=== PATIENT | female | born 1955 | race Two or more races ===

== ENCOUNTER 2016-12-06 10:22 | Outpatient (CLI) | payer BC, OTHER ==
[~2016-12-06 10:22] MED LIST: ASPI-605 PO; ATEN25TA PO; LISI10TA59 GT
== END 2016-12-06 23:59 | disposition home or self-care (01) ==
LOC: RAD 10:22
PROVIDERS: ATTEND Family Medicine
DX: M25.552 Pain in left hip (principal)
CPT/HCPCS: 73510-TC

== ENCOUNTER 2017-02-09 10:26 | Outpatient (CLI) | payer BC, OTHER ==
[2017-02-09 11:11] LABS: BASOPHILS % (AUTO) 0.7 % (0.0-2.0); EOSINOPHILS # (AUTO) 0.2 /CMM (0.0-0.7); EOSINOPHILS % (AUTO) 2.4 % (0.0-6.0); HEMATOCRIT 44 % (33-45); HEMOGLOBIN 14.6 g/dL (11.5-14.8); LYMPHOCYTES # (AUTO) 1.9 /CMM (0.8-4.8); MEAN CORPUSCULAR HEMOGLOBIN 27 PG (26.0-33.0); MEAN CORPUSCULAR HGB CONC 33 g/dl (31.0-36.0); MEAN CORPUSCULAR VOLUME 79 fL (82-100); MONOCYTES # (AUTO) 0.2 /CMM (0.1-1.30); MONOCYTES % (AUTO) 3.3 % (2.0-12.0); NEUTROPHILS # (AUTO) 3.9 /CMM (1.8-8.9); NEUTROPHILS % (AUTO) 62.6 % (43.0-81.0); PLATELET COUNT (AUTO) 241 /CMM (150-450); RDW COEFFICIENT OF VARIATION 14.4 (11.5-15.0); RED BLOOD CELL COUNT(AUTO) 5.51 MIL/uL (4.0-5.2); WHITE BLOOD COUNT (AUTO) 6.3 K/uL (4.3-11.0)
[2017-02-09 11:38] LABS: BILIRUBIN,TOTAL 0.5 mg/dL (0.2-1.0); CALCIUM, SERUM 9.6 mg/dL (8.5-10.1); CREATININE 0.8 mg/dL (0.6-1.3); POTASSIUM 4.4 mmol/L (3.5-5.1); TOTAL PROTEIN, SERUM 7.7 g/dL (6.4-8.2)
[2017-02-09 11:44] LABS: THYROID STIMULATING HORMONE 1.762 uIU/mL (0.358-3.74)
== END 2017-02-09 23:59 | disposition home or self-care (01) ==
LOC: LAB 10:26
PROVIDERS: ATTEND Family Medicine
DX: I10 Essential (primary) hypertension (principal); E55.9 Vitamin D deficiency, unspecified
CPT/HCPCS: 36415; 80053-TC; 80061-TC; 82306; 84439-TC; 84443-TC; 85025-TC

== ENCOUNTER 2017-02-21 10:29 | Outpatient (CLI) | payer BC, OTHER ==
[2017-02-22 13:22] LABS: HEPATITIS A AB, TOTAL Positive (Negative); HEPATITIS B SURFACE AB Non Reactive (.)
== END 2017-02-21 23:59 | disposition home or self-care (01) ==
LOC: LAB 10:29
PROVIDERS: ATTEND Family Medicine
DX: R94.5 Abnormal results of liver function studies (principal)
CPT/HCPCS: 36415; 86706; 86709-TC; 87340

== ENCOUNTER 2017-02-22 10:18 | Outpatient (CLI) | payer BC, OTHER | END 2017-02-22 23:59 | disposition home or self-care (01) | LOC: US 10:18 | PROVIDERS: ATTEND Family Medicine | DX: R16.0 Hepatomegaly, not elsewhere classified (principal); K76.0 Fatty (change of) liver, not elsewhere classified; Z90.49 Acquired absence of other specified parts of digestive tract | CPT/HCPCS: 76700-TC ==

== ENCOUNTER 2017-02-27 11:16 | Outpatient (CLI) | payer BC, OTHER | END 2017-02-27 23:59 | disposition home or self-care (01) | LOC: LAB 11:16 | PROVIDERS: ATTEND Family Medicine | DX: R94.5 Abnormal results of liver function studies (principal) | CPT/HCPCS: 36415 ==

== ENCOUNTER 2017-03-01 09:25 | Outpatient (CLI) | payer BC, OTHER | END 2017-03-01 23:59 | disposition home or self-care (01) | LOC: MRI 09:25 | PROVIDERS: ATTEND Family Medicine | DX: S83.281A Other tear of lateral meniscus, current injury, right knee, initial encounter (principal); M25.552 Pain in left hip; M17.11 Unilateral primary osteoarthritis, right knee; M25.461 Effusion, right knee; M65.861 Other synovitis and tenosynovitis, right lower leg; X58.XXXA Exposure to other specified factors, initial encounter; Y93.89 Activity, other specified; Y92.89 Other specified places as the place of occurrence of the external cause; Y99.8 Other external cause status | CPT/HCPCS: 73721-TC ==

== ENCOUNTER 2017-05-31 05:07 | Day surgery (SDC) | payer BC, OTHER ==
[2017-05-31] MEDS ORDERED: NEEDLELESS EST SET LARGE BORE 1 EA INFUS.SET MC ONE (05:11)
[2017-05-31] MEDS ORDERED: CEFAZOLIN SODIUM/DEXTROSE,ISO 50 ML IV ONE (05:11)
[2017-05-31] MEDS ORDERED: IV SET PRIMARY 1 EA INFUS.SET MC ONE (05:11)
[2017-05-31] MEDS ORDERED: SECONDARY IV SET 1 EA INFUS.SET MC ONE (05:11)
[2017-05-31] MEDS ORDERED: IV NS 0.9% 1,000 ML ONE (05:11)
[2017-05-31] MEDS ORDERED: LIDOCAINE HCL/PF 1% 30 ML SDV ONE (06:20)
[2017-05-31] MEDS ORDERED: methylPREDNISolone ACETATE 80 MG/ML VIAL ONE (07:08)
[2017-05-31] MEDS ORDERED: FENTANYL PF 100MCG/2ML AMPUL ONE (07:28)
== END 2017-05-31 08:20 | disposition home or self-care (01) ==
LOC: DS 05:07
PROVIDERS: ATTEND Specialist
DX: S83.281A Other tear of lateral meniscus, current injury, right knee, initial encounter (principal); S83.241A Other tear of medial meniscus, current injury, right knee, initial encounter; M94.261 Chondromalacia, right knee; X58.XXXA Exposure to other specified factors, initial encounter; Y93.9 Activity, unspecified; Y92.89 Other specified places as the place of occurrence of the external cause; Y99.9 Unspecified external cause status; E66.3 Overweight; E78.5 Hyperlipidemia, unspecified; I10 Essential (primary) hypertension; E11.9 Type 2 diabetes mellitus without complications; M16.10 Unilateral primary osteoarthritis, unspecified hip
CPT/HCPCS: 88304-TC; 88305-TC; 88311-TC; A4217; A6253; J0690; J1040; J1100; J2001; J2704; J3010; J3490; J7030

== ENCOUNTER 2017-11-13 21:18 | Emergency (ER) | payer BC, OTHER ==
[~2017-11-13] VITALS: Ht 160 cm; Wt 68.0 kg
--- NOTE | 2017-11-13 21:41 | NUR ---
PT BIB DAUGHTER, PT C/O HEAD PAIN, RIGHT KNEE PAIN, AND LOWER BACK PAIN S/P UNWITNESSED SLIP AND FALL, PT STATES BACK OF HEAD HIT THE STAIRS, LAST NIGHT DENIES KO. RR EVEN AND UNLABORED. NO SOB NOTED. NAD NOTED. NO NVD AT THIS TIME. PT GOWNED AND PLACED ON MONITOR WAITIG FOR MD LUU.
--- NOTE | 2017-11-13 22:30 | NUR ---
DR. TORO AT BEDSIDE FOR EVAL.
[2017-11-13 22:52] LABS: BASOPHILS % (AUTO) 0.3 % (0.0-2.0); EOSINOPHILS # (AUTO) 0.2 /CMM (0.0-0.7); EOSINOPHILS % (AUTO) 2.8 % (0.0-6.0); HEMATOCRIT 39 % (33-45); HEMOGLOBIN 13.2 g/dL (11.5-14.8); LYMPHOCYTES # (AUTO) 2.1 /CMM (0.8-4.8); LYMPHOCYTES % (AUTO) 34.5 % (20.0-44.0); MEAN CORPUSCULAR HEMOGLOBIN 27 PG (26.0-33.0); MEAN CORPUSCULAR HGB CONC 34 g/dl (31.0-36.0); MEAN CORPUSCULAR VOLUME 80 fL (82-100); MONOCYTES # (AUTO) 0.3 /CMM (0.1-1.30); MONOCYTES % (AUTO) 5.5 % (2.0-12.0); NEUTROPHILS # (AUTO) 3.4 /CMM (1.8-8.9); NEUTROPHILS % (AUTO) 56.9 % (43.0-81.0); PLATELET COUNT (AUTO) 197 /CMM (150-450); RDW COEFFICIENT OF VARIATION 13.5 (11.5-15.0); RED BLOOD CELL COUNT(AUTO) 4.94 MIL/uL (4.0-5.2); WHITE BLOOD COUNT (AUTO) 5.9 K/uL (4.3-11.0)
[2017-11-13] MEDS ORDERED: MORPHINE SULFATE INJ 2 MG/ML DISP.SYRIN IV ONE (23:00)
[2017-11-13] MEDS ORDERED: ONDANSETRON HCL/PF 4 MG/2 ML VIAL IVP ONE (23:00)
--- NOTE | 2017-11-13 23:01 | NUR ---
PATIENT OFF TO CT SCAN IN STABLE CONDITION
[2017-11-13 23:06] LABS: CALCIUM, SERUM 9.1 mg/dL (8.5-10.1); CREATININE 0.9 mg/dL (0.6-1.3)
[2017-11-13 23:11] LABS: INR 1.04 (0.87-1.13); PROTHROMBIN TIME 10.8 SECS (9.5-12.7)
[2017-11-13 23:12] LABS: ALBUMIN 3.6 g/dL (3.4-5.0); BILIRUBIN,DIRECT 0.1 mg/dL (0.0-0.2); BILIRUBIN,TOTAL 0.3 mg/dL (0.2-1.0); TOTAL PROTEIN, SERUM 7.3 g/dL (6.4-8.2)
[2017-11-13] MEDS ORDERED: ONDANSETRON HCL/PF 4 MG/2 ML VIAL ONE (23:19)
[2017-11-13] MEDS ORDERED: MORPHINE SULFATE INJ 4 MG/ML DISP.SYRIN ONE (23:20)
--- NOTE | 2017-11-13 23:33 | NUR ---
PT RETURNED FROM CT.
--- NOTE | 2017-11-14 00:24 | NUR ---
URINE COLOR SHOWED TO AND MS WAS PLEASED. WILL CONTINUE CARE UNTIL D/C
--- NOTE | 2017-11-14 00:25 | NUR ---
DR. TORO AT BEDSIDE SPEAKING TO PT REGARDING RESULTS.
--- NOTE | 2017-11-14 01:10 | NUR ---
D/C INSTRUCTIONS GIVEN. WALKER GIVEN FOR AMBULATORY HELP
[2017-11-14 01:18] VITALS: BP 135/68
== END 2017-11-14 01:19 | disposition home or self-care (01) ==
LOC: ER 21:19
DX: S09.90XA Unspecified injury of head, initial encounter (principal); S70.01XA Contusion of right hip, initial encounter; M23.91 Unspecified internal derangement of right knee; I10 Essential (primary) hypertension; Z79.82 Long term (current) use of aspirin; Z91.013 Allergy to seafood; Z90.710 Acquired absence of both cervix and uterus; Z85.42 Personal history of malignant neoplasm of other parts of uterus; W10.9XXA Fall (on) (from) unspecified stairs and steps, initial encounter; Y93.89 Activity, other specified; Y92.89 Other specified places as the place of occurrence of the external cause; Y99.8 Other external cause status
CPT/HCPCS: 36415; 70450-TC; 71010-TC; 72125-TC; 73502; 73552; 73564-TC; 80048-TC; 80076-TC; 85025-TC; 85730-TC; A4606; J2270; J2405; Z7610

== ENCOUNTER 2017-11-15 11:19 | Outpatient (CLI) | payer BC, OTHER ==
[2017-11-16 08:09] LABS: THYROID PEROXIDASE (TPO) AB 11 IU/mL (0-34)
== END 2017-11-15 23:59 | disposition home or self-care (01) ==
LOC: LAB 11:19
PROVIDERS: ATTEND Family Medicine
DX: E04.1 Nontoxic single thyroid nodule (principal)
CPT/HCPCS: 36415; 86376

== ENCOUNTER 2017-11-16 11:07 | Outpatient (CLI) | payer BC, OTHER | END 2017-11-16 23:59 | disposition home or self-care (01) | LOC: US 11:07 | PROVIDERS: ATTEND Family Medicine | DX: E04.2 Nontoxic multinodular goiter (principal) | CPT/HCPCS: 76536-TC ==

== ENCOUNTER 2017-11-21 09:30 | Outpatient (CLI) | payer BC, OTHER | END 2017-11-21 23:59 | disposition home or self-care (01) | LOC: MRI 09:30 | PROVIDERS: ATTEND Family Medicine | DX: S80.01XA Contusion of right knee, initial encounter (principal); M22.41 Chondromalacia patellae, right knee; E04.1 Nontoxic single thyroid nodule; X58.XXXA Exposure to other specified factors, initial encounter; Y93.89 Activity, other specified; Y92.89 Other specified places as the place of occurrence of the external cause; Y99.8 Other external cause status | CPT/HCPCS: 73721-TC ==

== ENCOUNTER 2018-01-19 11:13 | Outpatient (CLI) | payer BC, OTHER | END 2018-01-19 23:59 | disposition home or self-care (01) | LOC: RAD 11:13 | PROVIDERS: ATTEND Family Medicine | DX: R13.11 Dysphagia, oral phase (principal) | CPT/HCPCS: 74230-TC ==

== ENCOUNTER 2018-03-01 09:03 | Outpatient (CLI) | payer BC, OTHER ==
[2018-03-01 09:54] LABS: BASOPHILS % (AUTO) 0.6 % (0.0-2.0); EOSINOPHILS % (AUTO) 1.8 % (0.0-6.0); HEMATOCRIT 42 % (33-45); LYMPHOCYTES # (AUTO) 1.9 /CMM (0.8-4.8); LYMPHOCYTES % (AUTO) 28.9 % (20.0-44.0); MEAN CORPUSCULAR HGB CONC 35 g/dl (31.0-36.0); MEAN CORPUSCULAR VOLUME 81 fL (82-100); MONOCYTES # (AUTO) 0.2 /CMM (0.1-1.30); MONOCYTES % (AUTO) 3.6 % (2.0-12.0); NEUTROPHILS # (AUTO) 4.5 /CMM (1.8-8.9); NEUTROPHILS % (AUTO) 65.1 % (43.0-81.0); PLATELET COUNT (AUTO) 218 /CMM (150-450); RDW COEFFICIENT OF VARIATION 13.1 (11.5-15.0); RED BLOOD CELL COUNT(AUTO) 5.26 MIL/uL (4.0-5.2); WHITE BLOOD COUNT (AUTO) 6.7 K/uL (4.3-11.0)
[2018-03-01 10:32] LABS: ALBUMIN 3.8 g/dL (3.4-5.0); BILIRUBIN,TOTAL 0.5 mg/dL (0.2-1.0); CALCIUM, SERUM 9.7 mg/dL (8.5-10.1); CREATININE 0.8 mg/dL (0.6-1.3); POTASSIUM 4.2 mmol/L (3.5-5.1); TOTAL PROTEIN, SERUM 7.5 g/dL (6.4-8.2)
[2018-03-01 10:41] LABS: FREE T4 (FREE THYROXINE) 1.15 ng/dL (0.76-1.46); THYROID STIMULATING HORMONE 2.495 uIU/mL (0.358-3.74)
[2018-03-01 10:47] LABS: INR 1.04 (0.87-1.13)
== END 2018-03-01 23:59 | disposition home or self-care (01) ==
LOC: LAB 09:03
PROVIDERS: ATTEND Family Medicine
DX: E11.9 Type 2 diabetes mellitus without complications (principal); E06.3 Autoimmune thyroiditis; R79.1 Abnormal coagulation profile
CPT/HCPCS: 36415; 80053-TC; 80061-TC; 84439-TC; 84443-TC; 85025-TC; 85610-TC; 85730-TC

== ENCOUNTER 2018-03-02 09:10 | Outpatient (CLI) | payer BC, OTHER | END 2018-03-02 23:59 | disposition home or self-care (01) | LOC: US 09:10 | PROVIDERS: ATTEND Family Medicine | DX: N20.0 Calculus of kidney (principal); K76.0 Fatty (change of) liver, not elsewhere classified | CPT/HCPCS: 76770-TC ==

== ENCOUNTER 2018-03-08 13:00 | Outpatient (CLI) | payer BC ==
[2018-03-08] MEDS ORDERED: LIDOCAINE HCL/PF 1% 30 ML SDV ONE (13:03)
== END 2018-03-08 23:59 | disposition home or self-care (01) ==
LOC: US 13:00
PROVIDERS: ATTEND Otolaryngology
DX: E04.2 Nontoxic multinodular goiter (principal)
CPT/HCPCS: 76942; 88305 ×2; 88312; J3490

== ENCOUNTER 2018-04-12 13:18 | Outpatient (CLI) | payer BC ==
[2018-04-13 08:08] LABS: *RUBEOLA AB (IGG) >300.0 AU/mL (Immune >29.9); RUBELLA ANTIBODIES, IGG 5.15 index (Immune >0.99)
== END 2018-04-12 23:59 | disposition home or self-care (01) ==
LOC: LAB 13:18
PROVIDERS: ATTEND Family Medicine
DX: K11.20 Sialoadenitis, unspecified (principal)
CPT/HCPCS: 36415; 86735; 86762; 86765

== ENCOUNTER 2018-06-07 08:44 | Outpatient (CLI) | payer BC ==
[2018-06-07] MEDS ORDERED: GADODIAMIDE 5 MMOL/10 ML VIAL IJ ONE (08:45)
[2018-06-07 10:46] LABS: CREATININE 0.8 mg/dL (0.6-1.3)
== END 2018-06-07 23:59 | disposition home or self-care (01) ==
LOC: US 08:44
PROVIDERS: ATTEND Family Medicine
DX: E04.2 Nontoxic multinodular goiter (principal)
CPT/HCPCS: 36415; 70542-TC; 76642-TC; 82565-TC; 84520-TC

== ENCOUNTER 2018-11-26 23:27 | Emergency (ER) | payer BC ==
[~2018-11-26] VITALS: Ht 165.1 cm; Wt 111.1 kg
--- NOTE | 2018-11-26 23:50 | NUR ---
PT BIB RA. COMP OF FEELING "CHEST TIGHTNESS, PAIN AND STABBING SINCE NOON". NO SOB NOTED AT THIS TIME. NO ACUTE DISTRESS AT THIS TIME. PT AOX4. AWAITING MD LUU
[2018-11-26] MEDS ORDERED: HYDROCODONE/APAP 5/325MG 1 EACH TABLET ONE (23:52)
[2018-11-26] MEDS ORDERED: ASPIRIN 81 MG TAB.CHEW ONE (23:52)
[2018-11-26] MEDS ORDERED: NITROGLYCERIN PACKET 1 GM PACKET ONE (23:52)
[2018-11-26] MEDS ORDERED: NITROGLYCERIN 0.4 MG/TAB BOTTLE ONE (23:52)
[2018-11-27] MEDS ORDERED: ASPIRIN 81 MG TAB.CHEW PO ONE
[2018-11-27] MEDS ORDERED: NITROGLYCERIN 0.4 MG/TAB BOTTLE SL ONE
[2018-11-27] MEDS ORDERED: HYDROCODONE/APAP 5/325MG 1 EACH TABLET PO ONE
[2018-11-27] MEDS ORDERED: NITROGLYCERIN PACKET 1 GM PACKET TD ONE
[2018-11-27 00:05] LABS: BASOPHILS # (AUTO) 0.1 /CMM (0.0-0.2); BASOPHILS % (AUTO) 0.8 % (0.0-2.0); EOSINOPHILS % (AUTO) 1.5 % (0.0-6.0); HEMATOCRIT 46 % (33-45); HEMOGLOBIN 15.5 g/dL (11.5-14.8); LYMPHOCYTES # (AUTO) 1.9 /CMM (0.8-4.8); LYMPHOCYTES % (AUTO) 25.9 % (20.0-44.0); MEAN CORPUSCULAR HGB CONC 34 g/dl (31.0-36.0); MEAN CORPUSCULAR VOLUME 80 fL (82-100); MONOCYTES # (AUTO) 0.4 /CMM (0.1-1.30); MONOCYTES % (AUTO) 5.1 % (2.0-12.0); NEUTROPHILS % (AUTO) 66.7 % (43.0-81.0); PLATELET COUNT (AUTO) 233 /CMM (150-450); RED BLOOD CELL COUNT(AUTO) 5.79 MIL/uL (4.0-5.2); WHITE BLOOD COUNT (AUTO) 7.4 K/uL (4.3-11.0)
[2018-11-27 00:14] LABS: CALCIUM, SERUM 9.8 mg/dL (8.5-10.1); CARBON DIOXIDE 30 mmol/L (21-32); CHLORIDE 102 mmol/L (98-107); CREATININE 1.1 mg/dL (0.6-1.3); GLUCOSE 133 mg/dL (74-106); POTASSIUM 3.4 mmol/L (3.5-5.1); SODIUM SERUM 142 mmol/L (136-145); UREA NITROGEN, BLOOD 14 mg/dL (7-18)
[2018-11-27 00:26] LABS: ALANINE AMINOTRANSFERASE 53 U/L (12-78); ALBUMIN 4.1 g/dL (3.4-5.0); ALKALINE PHOSPHATASE 169 U/L (46-116); ASPARTATE AMINOTRANSFERASE 30 U/L (15-37); B-TYPE NATRIURETIC PEPTIDE 101 PG/ML (0-125); BILIRUBIN,DIRECT 0.1 mg/dL (0.0-0.2); BILIRUBIN,TOTAL 0.7 mg/dL (0.2-1.0); TOTAL PROTEIN, SERUM 8.2 g/dL (6.4-8.2)
[2018-11-27] MEDS ORDERED: GUAIFENESIN/CODEINE 10 ML UDC ONE (02:33)
[2018-11-27] MEDS: GUAIFENESIN/CODEINE 10 ML UDC PO PRN ×2 (02:39→02:40)
[2018-11-27 04:03] VITALS: BP 136/72
== END 2018-11-27 04:04 | disposition home or self-care (01) ==
LOC: ER 23:29
DX: R07.89 Other chest pain (principal); R05 Cough; I10 Essential (primary) hypertension; Z90.710 Acquired absence of both cervix and uterus; Z90.49 Acquired absence of other specified parts of digestive tract; Z95.818 Presence of other cardiac implants and grafts; Z91.013 Allergy to seafood; Z60.2 Problems related to living alone; Z79.82 Long term (current) use of aspirin; Z79.899 Other long term (current) drug therapy
CPT/HCPCS: 36415 ×2; 71045; 80048; 80076; 83880; 84484 ×2; 85025; 85378; 93005; 99284; A4606; Z7610

== ENCOUNTER 2019-01-24 09:17 | Outpatient (CLI) | payer BC ==
[2019-01-24] MEDS ORDERED: ANESTHESIA TRAY IN PYXIS 1 EA TRAY MC ONE (09:35)
== END 2019-01-24 23:59 | disposition home or self-care (01) ==
LOC: RAD 09:17
PROVIDERS: ATTEND Family Medicine
DX: S92.912A Unspecified fracture of left toe(s), initial encounter for closed fracture (principal); M85.872 Other specified disorders of bone density and structure, left ankle and foot; M79.89 Other specified soft tissue disorders; X58.XXXA Exposure to other specified factors, initial encounter; Y93.89 Activity, other specified; Y92.89 Other specified places as the place of occurrence of the external cause; Y99.8 Other external cause status
CPT/HCPCS: 73630-TC

== ENCOUNTER 2020-06-14 14:14 | Emergency (ER) | payer BC ==
[~2020-06-14] VITALS: Ht 165.1 cm; Wt 103.4 kg
[~2020-06-14 14:14] MED LIST changes: +LISI-605 GT; -LISI10TA59 GT
--- NOTE | 2020-06-14 14:21 | NUR ---
came in for burning sensation on L chest radiates to left shoulder 6/10 pain scale, also c/o headache. to ER bed 10, hooked to monitor, changed to hosp gown, warm blanket provided. patient aao X 4, breathing even and unlabored. Zach Flores at bedside
--- NOTE | 2020-06-14 14:27 | NUR ---
SPRING chamorro at bedside for ekg
[2020-06-14 14:54] LABS: BASOPHILS % (AUTO) 0.5 % (0.0-2.0); EOSINOPHILS % (AUTO) 1.2 % (0.0-6.0); HEMATOCRIT 42 % (33-45); HEMOGLOBIN 14.3 g/dL (11.5-14.8); LYMPHOCYTES # (AUTO) 1.7 /CMM (0.8-4.8); LYMPHOCYTES % (AUTO) 22.2 % (20.0-44.0); MEAN CORPUSCULAR HGB CONC 34 g/dl (31.0-36.0); MEAN CORPUSCULAR VOLUME 82 fL (82-100); MONOCYTES # (AUTO) 0.4 /CMM (0.1-1.30); MONOCYTES % (AUTO) 4.9 % (2.0-12.0); NEUTROPHILS # (AUTO) 5.4 /CMM (1.8-8.9); NEUTROPHILS % (AUTO) 71.2 % (43.0-81.0); PLATELET COUNT (AUTO) 219 /CMM (150-450); RED BLOOD CELL COUNT(AUTO) 5.13 MIL/uL (4.0-5.2); WHITE BLOOD COUNT (AUTO) 7.6 K/uL (4.3-11.0)
[2020-06-14 15:07] LABS: CALCIUM, SERUM 9.7 mg/dL (8.5-10.1); CARBON DIOXIDE 31 mmol/L (21-32); CHLORIDE 102 mmol/L (98-107); CREATININE 0.8 mg/dL (0.6-1.3); GLUCOSE 99 mg/dL (74-106); POTASSIUM 3.8 mmol/L (3.5-5.1); SODIUM SERUM 139 mmol/L (136-145); UREA NITROGEN, BLOOD 15 mg/dL (7-18)
[2020-06-14] MEDS ORDERED: KETOROLAC TROMETHAMINE INJ 30 MG/ML VIAL ONE (16:02)
--- NOTE | 2020-06-14 16:22 | NUR ---
PATIENT IN BED ASLEEP, EASILY AROUSABLE BY VOICE. HOOKED TO MONITOR, SINUS RHYTHM. WILL CONTINUE TO MONITOR ACCORDINGLY. 12/30 CHEST PAIN
[2020-06-14] MEDS ORDERED: KETOROLAC TROMETHAMINE INJ 30 MG/ML VIAL IV ONE (16:30)
--- NOTE | 2020-06-14 18:13 | NUR ---
IV removed. Catheter intact and site benign. Pressure and 4x4 applied to site. No bleeding noted.Patient discharged to home in stable condition. Written and verbal after care instructions given. Patient verbalizes understanding of instruction.
[2020-06-14 18:23] VITALS: BP 131/63
== END 2020-06-14 18:24 | disposition home or self-care (01) ==
LOC: ER 14:18
DX: R07.89 Other chest pain (principal); I25.10 Atherosclerotic heart disease of native coronary artery without angina pectoris; I10 Essential (primary) hypertension; Z85.42 Personal history of malignant neoplasm of other parts of uterus; Z90.710 Acquired absence of both cervix and uterus; Z90.49 Acquired absence of other specified parts of digestive tract; Z98.61 Coronary angioplasty status; Z91.013 Allergy to seafood; Z60.2 Problems related to living alone; Z79.82 Long term (current) use of aspirin; Z79.899 Other long term (current) drug therapy
CPT/HCPCS: 36415; 71045; 80048; 84484 ×2; 85025; 93005 ×2; 96374; 99285; J1885

== ENCOUNTER 2020-07-23 13:03 | Outpatient (CLI) | payer BC, OTHER | END 2020-07-23 23:59 | disposition home or self-care (01) | LOC: CARD 13:03 | PROVIDERS: ATTEND Family Medicine | DX: I35.8 Other nonrheumatic aortic valve disorders (principal) | CPT/HCPCS: 93307-TC ==

== ENCOUNTER 2021-03-03 20:47 | Emergency (ER) | payer BC, OTHER ==
[~2021-03-03] VITALS: Ht 165.1 cm; Wt 111.6 kg
[~2021-03-03 20:47] MED LIST changes: -LISI-605 GT; +LISI10TA30 GT
--- NOTE | 2021-03-03 20:50 | NUR ---
JOSE DAVID C/O VERTIGO. PT STATES SHE WAS GETTING READY FOR WORK EARILER TODAY AND FELT THE ROOM SPINNING. ALSO C/O EAR PAIN. PT AAOX4. AMBULATORY WITH STEADY GAIT. VITAL SIGNS STABLE. RESPIRATIONS EVEN AND UNLABORED. NO ACUTE DISTRESS NOTED AT THIS TIME
[2021-03-03] MEDS ORDERED: MECLIZINE HCL 12.5 MG TABLET PO ONE (21:30)
[2021-03-03] MEDS ORDERED: ONDANSETRON 4 MG TAB.RAPDIS PO ONE (21:30)
[2021-03-03] MEDS ORDERED: ACETAMINOPHEN 325 MG TABLET PO ONE (21:30)
[2021-03-03] MEDS ORDERED: IV NS 0.9% 1,000 ML BAG IV ONE (21:30)
[2021-03-03 21:37] LABS: BASOPHILS % (AUTO) 0.6 % (0.0-2.0); EOSINOPHILS % (AUTO) 2.1 % (0.0-6.0); HEMATOCRIT 42 % (33-45); HEMOGLOBIN 14.2 g/dL (11.5-14.8); LYMPHOCYTES # (AUTO) 1.2 /CMM (0.8-4.8); LYMPHOCYTES % (AUTO) 18.9 % (20.0-44.0); MEAN CORPUSCULAR HGB CONC 34 g/dl (31.0-36.0); MEAN CORPUSCULAR VOLUME 82 fL (82-100); MONOCYTES # (AUTO) 0.2 /CMM (0.1-1.30); MONOCYTES % (AUTO) 3.2 % (2.0-12.0); NEUTROPHILS # (AUTO) 4.8 /CMM (1.8-8.9); NEUTROPHILS % (AUTO) 75.2 % (43.0-81.0); PLATELET COUNT (AUTO) 193 /CMM (150-450); RED BLOOD CELL COUNT(AUTO) 5.18 MIL/uL (4.0-5.2); WHITE BLOOD COUNT (AUTO) 6.4 K/uL (4.3-11.0)
[2021-03-03] MEDS ORDERED: ACETAMINOPHEN 325 MG TABLET ONE (21:39)
[2021-03-03] MEDS ORDERED: ONDANSETRON 4 MG TAB.RAPDIS ONE (21:39)
[2021-03-03] MEDS ORDERED: MECLIZINE HCL 25 MG TABLET ONE (21:39)
--- NOTE | 2021-03-03 21:42 | NUR ---
BROUGHT BY RADIOLOGY TO CT
[2021-03-03 21:50] LABS: CALCIUM, SERUM 9.6 mg/dL (8.5-10.1); CARBON DIOXIDE 30 mmol/L (21-32); CHLORIDE 106 mmol/L (98-107); CREATININE 0.8 mg/dL (0.6-1.3); GLUCOSE 136 mg/dL (74-106); POTASSIUM 3.7 mmol/L (3.5-5.1); SODIUM SERUM 144 mmol/L (136-145); UREA NITROGEN, BLOOD 12 mg/dL (7-18)
[2021-03-03 21:55] LABS: ALANINE AMINOTRANSFERASE 35 U/L (12-78); ALBUMIN 3.6 g/dL (3.4-5.0); ALKALINE PHOSPHATASE 112 U/L (46-116); ASPARTATE AMINOTRANSFERASE 26 U/L (15-37); BILIRUBIN,DIRECT 0.1 mg/dL (0.0-0.2); BILIRUBIN,TOTAL 0.5 mg/dL (0.2-1.0); TOTAL PROTEIN, SERUM 7.3 g/dL (6.4-8.2)
--- NOTE | 2021-03-03 21:57 | NUR ---
BROUGHT BACK FROM RADIOLOGY
[2021-03-03] MEDS ORDERED: MECL-159 PO (22:41)
[2021-03-03] MEDS ORDERED: AMOX-430 PO (22:41)
[2021-03-03] MEDS ORDERED: ONDA4TAB5 PO (22:41)
[2021-03-03] MEDS ORDERED: ACET-2605 PO (22:41)
--- NOTE | 2021-03-03 23:38 | NUR ---
COVID SWAB COLLECTED, CALLED LAB FOR REPORTS ANALYSIS MANAGER
--- NOTE | 2021-03-03 23:38 | NUR ---
Patient discharged to home in stable condition. Written and verbal after care instructions given. Patient verbalizes understanding of instruction.IV removed. Catheter intact and site benign. Pressure and 4x4 applied to site. No bleeding noted.Pt ambulatory with a steady gait
[2021-03-03 23:39] VITALS: BP 165/93
== END 2021-03-03 23:39 | disposition home or self-care (01) ==
LOC: ER 20:52
DX: R42 Dizziness and giddiness (principal); Z20.822 Contact with and (suspected) exposure to COVID-19; I10 Essential (primary) hypertension; I25.2 Old myocardial infarction; Z85.42 Personal history of malignant neoplasm of other parts of uterus; Z90.49 Acquired absence of other specified parts of digestive tract; Z90.710 Acquired absence of both cervix and uterus; Z91.013 Allergy to seafood; H92.02 Otalgia, left ear
CPT/HCPCS: 36415; 70450; 80048; 80076; 84484; 85025; 87426; 93005; 96360; 99285; C9803; J7030; J8597; Q0162

== ENCOUNTER 2021-04-12 11:38 | Outpatient (CLI) | payer BC ==
[~2021-04-12 11:38] MED LIST changes: +ACET-2605 PO; +AMOX-430 PO; +MECL-159 PO; +ONDA4TAB5 PO
[2021-04-12 12:38] LABS: CREATININE 0.7 mg/dL (0.6-1.3)
== END 2021-04-12 23:59 | disposition home or self-care (01) ==
LOC: LAB 11:38
PROVIDERS: ATTEND Family Medicine
DX: R42 Dizziness and giddiness (principal)
CPT/HCPCS: 36415; 82565-TC; 84520-TC

== ENCOUNTER 2021-04-15 11:47 | Outpatient (CLI) | payer BC ==
[2021-04-15] MEDS ORDERED: GADOTERATE MEGLUMINE 10 MMOL/20 ML VIAL IV ONE (11:48)
== END 2021-04-15 23:59 | disposition home or self-care (01) ==
LOC: MRI 11:47
PROVIDERS: ATTEND Family Medicine
DX: I67.82 Cerebral ischemia (principal); J32.8 Other chronic sinusitis
CPT/HCPCS: 70553; A9575

== ENCOUNTER 2022-10-27 09:26 | Outpatient (CLI) | payer BC ==
[2022-10-27] MEDS ORDERED: IV NS 0.9% 250 ML IV ONE (09:46)
[2022-10-27] MEDS ORDERED: IOHEXOL-300 100 ML VIAL IV ONE (09:46)
[2022-10-27] MEDS ORDERED: CT SWABBABLE VALVE TRANS SET 1 EA INFUS.SET MC ONE (09:46)
== END 2022-10-27 23:59 | disposition home or self-care (01) ==
LOC: CT 09:26
PROVIDERS: ATTEND Family Medicine
DX: R91.1 Solitary pulmonary nodule (principal); K76.0 Fatty (change of) liver, not elsewhere classified; M51.37 Other intervertebral disc degeneration, lumbosacral region; I70.0 Atherosclerosis of aorta; N20.0 Calculus of kidney; K76.9 Liver disease, unspecified; E04.1 Nontoxic single thyroid nodule; Z90.712 Acquired absence of cervix with remaining uterus
CPT/HCPCS: 71250; 74178; J7050; Q9967

== ENCOUNTER 2022-11-04 09:59 | Outpatient (CLI) | payer BC | END 2022-11-04 23:59 | disposition home or self-care (01) | LOC: LAB 09:59 | PROVIDERS: ATTEND Family Medicine | DX: R19.09 Other intra-abdominal and pelvic swelling, mass and lump (principal) | CPT/HCPCS: 82384 ==

== ENCOUNTER 2023-05-25 11:56 | Outpatient (CLI) | payer BC | END 2023-05-25 23:59 | disposition home or self-care (01) | LOC: RAD 11:56 | PROVIDERS: ATTEND Family Medicine | DX: M17.11 Unilateral primary osteoarthritis, right knee (principal); M25.862 Other specified joint disorders, left knee; M25.762 Osteophyte, left knee; M25.562 Pain in left knee; M25.561 Pain in right knee | CPT/HCPCS: 73562 ==

== ENCOUNTER 2023-07-20 10:29 | Inpatient (IN) | payer BC ==
[~2023-07-20] VITALS: Ht 165.1 cm; Wt 67.1 kg
[2023-07-20 12:10] LABS: BASOPHILS % (AUTO) 0.8 % (0.0-2.0); EOSINOPHILS # (AUTO) 0.1 K/uL (0.0-0.7); HEMATOCRIT 38 % (33-45); HEMOGLOBIN 12.8 g/dL (11.5-14.8); LYMPHOCYTES # (AUTO) 1.8 K/uL (0.8-4.8); LYMPHOCYTES % (AUTO) 26.8 % (20.0-44.0); MEAN CORPUSCULAR HEMOGLOBIN 26 PG (26.0-33.0); MEAN CORPUSCULAR HGB CONC 33 g/dl (31.0-36.0); MEAN CORPUSCULAR VOLUME 78 fL (82-100); MONOCYTES # (AUTO) 0.3 K/uL (0.1-1.30); MONOCYTES % (AUTO) 4.4 % (2.0-12.0); NEUTROPHILS # (AUTO) 4.3 K/uL (1.8-8.9); PLATELET COUNT (AUTO) 213 K/uL (150-450); RED BLOOD CELL COUNT(AUTO) 4.92 MIL/uL (4.0-5.2); RED CELL DISTRIBUTION WIDTH 13.8 % (11.5-15.0); WHITE BLOOD COUNT (AUTO) 6.6 K/uL (4.3-11.0)
[2023-07-20 12:25] LABS: CALCIUM, SERUM 9.7 mg/dL (8.5-10.1); CARBON DIOXIDE 27 mmol/L (21-32); CHLORIDE 107 mmol/L (98-107); CREATININE 1.2 mg/dL (0.6-1.3); GLUCOSE 94 mg/dL (74-106); POTASSIUM 3.7 mmol/L (3.5-5.1); SODIUM SERUM 143 mmol/L (136-145); UREA NITROGEN, BLOOD 22 mg/dL (7-18)
[2023-07-20 12:34] VITALS: O2SAT 98
[2023-07-20] MEDS ORDERED: NAPR-1192 PO (14:38)
[2023-07-20] MEDS ORDERED: IV NS 0.9% 1,000 ML IV PRN (15:30)
[2023-07-20] MEDS ORDERED: ACETAMINOPHEN 325 MG TABLET PO PRN (15:30)
[2023-07-20] MEDS ORDERED: MAG HYDROX/AL HYDROX/SIMETH 30 ML UDC PO PRN (15:30)
[2023-07-20] MEDS ORDERED: ONDANSETRON HCL/PF 4 MG/2 ML VIAL IVP PRN (15:30)
[2023-07-20] MEDS ORDERED: MAGNESIUM HYDROXIDE 30 ML UDC PO PRN (15:30)
[2023-07-20] MEDS ORDERED: Z GUARD REMEDY 4 OZ OINT TP PRN (15:30)
[2023-07-20] MEDS ORDERED: CHOL100043 PO (16:16)
[2023-07-20] MEDS ORDERED: LOSA50TA39 PO (16:16)
[2023-07-20] MEDS ORDERED: ATOR40TA PO (16:16)
[2023-07-20] MEDS ORDERED: ISOS30TA86 PO (16:16)
[2023-07-20] MEDS ORDERED: LEVO100T9 PO (16:16)
[2023-07-20] MEDS ORDERED: METO-357 PO (16:16)
[2023-07-20] MEDS: ACETAMINOPHEN ES 500 MG TABLET PO PRN ×2 (16:52→21:58)
[2023-07-20 21:42] VITALS: BP 129/67; TEMP 97.5; O2SAT 99
[2023-07-21 01:08] VITALS: BP 137/64; TEMP 98.6; O2SAT 99
[2023-07-21] MEDS: ACETAMINOPHEN ES 500 MG TABLET PO PRN (04:06)
[2023-07-21 04:57] VITALS: BP 130/72; TEMP 98.4; O2SAT 98
[2023-07-21 06:50] LABS: BASOPHILS % (AUTO) 0.4 % (0.0-2.0); EOSINOPHILS # (AUTO) 0.2 K/uL (0.0-0.7); EOSINOPHILS % (AUTO) 2.8 % (0.0-6.0); HEMATOCRIT 35 % (33-45); HEMOGLOBIN 11.9 g/dL (11.5-14.8); LYMPHOCYTES # (AUTO) 1.7 K/uL (0.8-4.8); LYMPHOCYTES % (AUTO) 30.6 % (20.0-44.0); MEAN CORPUSCULAR HEMOGLOBIN 26 PG (26.0-33.0); MEAN CORPUSCULAR HGB CONC 34 g/dl (31.0-36.0); MEAN CORPUSCULAR VOLUME 78 fL (82-100); MONOCYTES # (AUTO) 0.3 K/uL (0.1-1.30); MONOCYTES % (AUTO) 5.8 % (2.0-12.0); NEUTROPHILS # (AUTO) 3.4 K/uL (1.8-8.9); NEUTROPHILS % (AUTO) 60.4 % (43.0-81.0); PLATELET COUNT (AUTO) 181 K/uL (150-450); RED BLOOD CELL COUNT(AUTO) 4.53 MIL/uL (4.0-5.2); RED CELL DISTRIBUTION WIDTH 13.9 % (11.5-15.0); WHITE BLOOD COUNT (AUTO) 5.6 K/uL (4.3-11.0)
[2023-07-21 07:08] LABS: CREATININE 0.9 mg/dL (0.6-1.3); MAGNESIUM 1.9 mg/dL (1.8-2.4)
[2023-07-21 08:00] VITALS: BP 136/62; TEMP 97.7; O2SAT 98
[2023-07-21] MEDS ORDERED: IBUPROFEN 600 MG TABLET PO PRN (09:00)
[2023-07-21] MEDS ORDERED: ASPIRIN EC 81 MG TABLET.DR PO SCH (09:00)
[2023-07-21] MEDS ORDERED: IBUP-1955 PO (12:29)
[2023-07-22] MEDS ORDERED: LEVOTHYROXINE SODIUM 100 MCG TABLET PO SCH (07:30)
[2023-07-22] MEDS ORDERED: LOSARTAN POTASSIUM 50 MG TABLET PO SCH (09:00)
[2023-07-22] MEDS ORDERED: METOPROLOL SUCCINATE 50 MG TAB.SR.24H PO SCH (09:00)
[2023-07-22] MEDS ORDERED: CHOLECALCIFEROL 1,000 UNIT TABLET (VIT D3) PO SCH (09:00)
[2023-07-22] MEDS ORDERED: ISOSORBIDE MONONITRATE (30MG) 30 MG TAB.SR.24H PO SCH (09:00)
[2023-07-22] MEDS ORDERED: ATORVASTATIN 40 MG TABLET PO SCH (09:00)
== END 2023-07-21 12:46 | disposition home or self-care (01) | DRG 74 ==
LOC: ER 10:31 → TELE 17:49
PROVIDERS: ADMIT Internal Medicine; ATTEND Internal Medicine
DX: G90.8 Other disorders of autonomic nervous system (principal); Z90.710 Acquired absence of both cervix and uterus; Z90.49 Acquired absence of other specified parts of digestive tract; W01.0XXA Fall on same level from slipping, tripping and stumbling without subsequent striking against object, initial encounter; Y92.009 Unspecified place in unspecified non-institutional (private) residence as the place of occurrence of the external cause; Z98.890 Other specified postprocedural states; Z91.013 Allergy to seafood; Z79.82 Long term (current) use of aspirin; Z79.899 Other long term (current) drug therapy; I10 Essential (primary) hypertension; I25.10 Atherosclerotic heart disease of native coronary artery without angina pectoris; E78.5 Hyperlipidemia, unspecified; S86.911A Strain of unspecified muscle(s) and tendon(s) at lower leg level, right leg, initial encounter; E55.9 Vitamin D deficiency, unspecified; E03.9 Hypothyroidism, unspecified; M47.816 Spondylosis without myelopathy or radiculopathy, lumbar region; N20.0 Calculus of kidney; G47.33 Obstructive sleep apnea (adult) (pediatric); E66.9 Obesity, unspecified; Z85.42 Personal history of malignant neoplasm of other parts of uterus
CPT/HCPCS: 36415; 70450-TC; 71045-TC; 72131-TC; 80048-TC; 83735-TC; 84100-TC; 84484-TC; 85025-TC; 93307-TC; 97116-TC; 97530-TC; A4223; G0378; J7030

== ENCOUNTER 2023-11-03 19:32 | Emergency (ER) | payer BC, OTHER ==
[~2023-11-03] VITALS: Ht 165.1 cm; Wt 108.9 kg
[~2023-11-03 19:32] MED LIST changes: -ACET-2605 PO; -AMOX-430 PO; -ATEN25TA PO; +ATOR40TA PO; +CHOL100043 PO; +IBUP-1955 PO; +ISOS30TA86 PO; +LEVO100T9 PO; -LISI10TA30 GT; +LOSA50TA39 PO; -MECL-159 PO; +METO-357 PO; -ONDA4TAB5 PO
[2023-11-03] MEDS ORDERED: IV NS 0.9% 1,000 ML BAG IV ONE (22:30)
[2023-11-03] MEDS ORDERED: ONDANSETRON HCL/PF 4 MG/2 ML VIAL IVP ONE (22:30)
[2023-11-03] MEDS ORDERED: KETOROLAC TROMETHAMINE 15 MG/ML VIAL IV ONE (22:30)
[2023-11-03] MEDS ORDERED: ONDANSETRON HCL/PF 4 MG/2 ML VIAL ONE (23:00)
[2023-11-03] MEDS ORDERED: KETOROLAC TROMETHAMINE INJ 30 MG/ML VIAL ONE (23:00)
[2023-11-03 23:11] LABS: BASOPHILS % (AUTO) 0.3 % (0.0-2.0); EOSINOPHILS % (AUTO) 0.1 % (0.0-6.0); HEMATOCRIT 40 % (33-45); LYMPHOCYTES # (AUTO) 1.2 K/uL (0.8-4.8); LYMPHOCYTES % (AUTO) 13.2 % (20.0-44.0); MEAN CORPUSCULAR HEMOGLOBIN 26 PG (26.0-33.0); MEAN CORPUSCULAR HGB CONC 33 g/dl (31.0-36.0); MEAN CORPUSCULAR VOLUME 79 fL (82-100); MONOCYTES # (AUTO) 0.3 K/uL (0.1-1.30); MONOCYTES % (AUTO) 3.1 % (2.0-12.0); NEUTROPHILS # (AUTO) 7.7 K/uL (1.8-8.9); NEUTROPHILS % (AUTO) 83.3 % (43.0-81.0); PLATELET COUNT (AUTO) 224 K/uL (150-450); RED BLOOD CELL COUNT(AUTO) 4.99 MIL/uL (4.0-5.2); RED CELL DISTRIBUTION WIDTH 15.1 % (11.5-15.0); WHITE BLOOD COUNT (AUTO) 9.2 K/uL (4.3-11.0)
[2023-11-03 23:22] LABS: CALCIUM, SERUM 9.7 mg/dL (8.5-10.1); CREATININE 0.8 mg/dL (0.6-1.3)
[2023-11-03 23:23] LABS: INR 1.09 (0.91-1.10); PARTIAL THROMBOPLASTIN TIME 27.7 SEC (24.3-34.3); PROTHROMBIN TIME 11.5 SECS (9.2-11.1)
[2023-11-03 23:25] LABS: APPEARANCE,URINE CLEAR (CLEAR); BILIRUBIN,URINE NEGATIVE (NEGATIVE); BLOOD, URINE 2+ Ery/uL (NEGATIVE); COLOR,URINE YELLOW (YELLOW); KETONES,URINE NEGATIVE (NEGATIVE); LEUKOCYTE ESTERASE ,URINE NEGATIVE (NEGATIVE); NITRITE, URINE NEGATIVE (NEGATIVE); PROTEIN,URINE NEGATIVE (NEGATIVE); UGLUCOSE NEGATIVE (NEGATIVE); UROBILINOGEN,URINE 0.2 EU/dL (0.2)
[2023-11-03 23:38] LABS: ALBUMIN 3.6 g/dL (3.4-5.0); BILIRUBIN,DIRECT 0.1 mg/dL (0.0-0.2); BILIRUBIN,TOTAL 0.5 mg/dL (0.2-1.0); TOTAL PROTEIN, SERUM 7.9 g/dL (6.4-8.2)
[2023-11-03 23:42] LABS: ADD URINE CULTURE NO; BACTERIA,URINE None seen /HPF (None Seen); SQUAMOUS EPITHELIAL CELL,UR 0-2 /HPF (None Seen); WBC,URINE 0-2 /HPF (0-3)
[2023-11-04 01:06] VITALS: BP 138/86; TEMP 98; O2SAT 98
== END 2023-11-04 01:08 | disposition home or self-care (01) ==
LOC: ER 19:34
DX: N20.0 Calculus of kidney (principal); E27.8 Other specified disorders of adrenal gland; I10 Essential (primary) hypertension; I25.10 Atherosclerotic heart disease of native coronary artery without angina pectoris; E78.00 Pure hypercholesterolemia, unspecified; Z79.82 Long term (current) use of aspirin; Z90.49 Acquired absence of other specified parts of digestive tract; Z79.899 Other long term (current) drug therapy; Z60.2 Problems related to living alone; Z91.018 Allergy to other foods
CPT/HCPCS: 99285; 74176; 96374; 96361; 96375; 85025; 80048; 83690; 80076; 81001; 36415; 85730; J1885; J2405; J7030

== ENCOUNTER 2024-06-02 17:06 | Emergency (ER) | payer BC, OTHER ==
[~2024-06-02] VITALS: Ht 165.1 cm; Wt 111.6 kg
[2024-06-02] MEDS ORDERED: KETOROLAC TROMETHAMINE 15 MG/ML VIAL ONE (17:35)
[2024-06-02] MEDS ORDERED: ONDANSETRON HCL/PF 4 MG/2 ML VIAL ONE (17:35)
[2024-06-02] MEDS ORDERED: MORPHINE SULFATE INJ 4 MG/ML DISP.SYRIN ONE (17:36)
[2024-06-02] MEDS: ONDANSETRON HCL/PF 4 MG/2 ML VIAL IVP ONE (17:43)
[2024-06-02] MEDS: KETOROLAC TROMETHAMINE 15 MG/ML VIAL IV ONE (17:43)
[2024-06-02 17:44] LABS: BASOPHILS % (AUTO) 0.5 % (0.0-2.0); EOSINOPHILS % (AUTO) 0.3 % (0.0-6.0); HEMATOCRIT 37 % (33-45); HEMOGLOBIN 12.8 g/dL (11.5-14.8); LYMPHOCYTES # (AUTO) 0.7 K/uL (0.8-4.8); LYMPHOCYTES % (AUTO) 7.4 % (20.0-44.0); MEAN CORPUSCULAR HEMOGLOBIN 27 PG (26.0-33.0); MEAN CORPUSCULAR HGB CONC 34 g/dl (31.0-36.0); MEAN CORPUSCULAR VOLUME 78 fL (82-100); MONOCYTES # (AUTO) 0.3 K/uL (0.1-1.30); MONOCYTES % (AUTO) 3.4 % (2.0-12.0); NEUTROPHILS # (AUTO) 8.2 K/uL (1.8-8.9); NEUTROPHILS % (AUTO) 88.4 % (43.0-81.0); PLATELET COUNT (AUTO) 186 K/uL (150-450); RED BLOOD CELL COUNT(AUTO) 4.78 MIL/uL (4.0-5.2); RED CELL DISTRIBUTION WIDTH 14.6 % (11.5-15.0); WHITE BLOOD COUNT (AUTO) 9.2 K/uL (4.3-11.0)
[2024-06-02] MEDS: IV NS 0.9% 1,000 ML BAG IV ONE (17:44)
[2024-06-02] MEDS: MORPHINE SULFATE INJ 2 MG/ML DISP.SYRIN IV ONE (17:44)
[2024-06-02 18:18] LABS: CALCIUM, SERUM 9.5 mg/dL (8.5-10.1); CREATININE 0.9 mg/dL (0.6-1.3)
[2024-06-02 18:28] LABS: ALBUMIN 3.4 g/dL (3.4-5.0); BILIRUBIN,DIRECT 0.1 mg/dL (0.0-0.2); BILIRUBIN,TOTAL 0.5 mg/dL (0.2-1.0); TOTAL PROTEIN, SERUM 7.5 g/dL (6.4-8.2)
[2024-06-02 19:44] LABS: APPEARANCE,URINE SLIGHTLY CLOUDY (CLEAR); BILIRUBIN,URINE NEGATIVE (NEGATIVE); BLOOD, URINE 3+ Ery/uL (NEGATIVE); COLOR,URINE YELLOW (YELLOW); KETONES,URINE TRACE mg/dL (NEGATIVE); LEUKOCYTE ESTERASE ,URINE NEGATIVE (NEGATIVE); NITRITE, URINE NEGATIVE (NEGATIVE); PH,URINE 5.5 (5.0-8.0); PROTEIN,URINE 1+ mg/dl (NEGATIVE); UGLUCOSE NEGATIVE (NEGATIVE); UROBILINOGEN,URINE 0.2 EU/dL (0.2)
[2024-06-02 19:51] LABS: ADD URINE CULTURE NO; BACTERIA,URINE RARE /HPF (None Seen); RBC,URINE 51-80 /HPF (0-2)
[2024-06-02 21:11] VITALS: BP 143/77; TEMP 98.1; O2SAT 99
== END 2024-06-02 21:11 | disposition home or self-care (01) ==
LOC: ER 17:08
DX: N20.0 Calculus of kidney (principal); I10 Essential (primary) hypertension; I25.10 Atherosclerotic heart disease of native coronary artery without angina pectoris; E78.00 Pure hypercholesterolemia, unspecified; Z98.890 Other specified postprocedural states; Z98.2 Presence of cerebrospinal fluid drainage device; Z79.1 Long term (current) use of non-steroidal anti-inflammatories (NSAID); Z90.49 Acquired absence of other specified parts of digestive tract; Z79.899 Other long term (current) drug therapy; Z91.018 Allergy to other foods
CPT/HCPCS: 99285; 74176; 96374; 96375; 96361; 85025; 80048; 83690; 80076; 81001; 36415; J2270; J2405; J7030; J1885